=== PATIENT | male | born 1965 | race Caucasian/White ===

== ENCOUNTER 2021-12-27 17:11 | Emergency (ER) | payer OTHER, SELFPAY ==
--- NOTE | ~2021-12-27 | XR_ITS ---
EXAMINATION: XR chest 2V DATE: 12/27/2021 17:31 INDICATION: Upper respiratory tract infection. One month of cough and wheezing. TECHNIQUE: frontal and lateral views of the chest were obtained. COMPARISON: None FINDINGS: A couple calcified nodules in the left upper lung zone consistent with old granulomatous disease, the larger measuring 2 cm. No other airspace opacities, pulmonary edema, pleural effusion or pneumothora x. The cardiomediastinal silhouette is normal. Mild compression fracture with 20% anterior vertebral body height loss at T4-T6. IMPRESSION: 1. Calcific granulomata in the left upper lung zone. No acute cardiopulmonary disease. Reviewed, dictated and finalized at location A. IMPRESSION: 1. Calcific granulomata in the left upper lung zone. No acute cardiopulmonary d isease.
[2021-12-27 17:18] VITALS: BP 155/68; PULSE 100; RESP 22; TEMP 37.1; O2SAT 96
[2021-12-27 17:41] VITALS: BP 155/68; PULSE 100; RESP 22; TEMP 37.1; O2SAT 96
--- NOTE | 2021-12-27 17:45 | ED.URI ---
HPI - URI/Sore Throat General Chief Complaint: Upper Respiratory Infection Stated Complaint: Chest Pain Time Seen by Provider: 12/27/21 17:35 Source: patient Mode of arrival: ambulatory Limitations: no limitations History of Present Illness HPI Narrative: Mr. Torres is a 56-year-old male patient presenting to the clinic today with complaints of chest pain, shortness of breath, and mid back pain x1 to 2 months. He reports his shortness of breath has been gradually getting worse. He has a history of COPD. He is a current smoker. States he is smoked since the age of 10. Reports that he initially was coughing up green phlegm however that has somewhat dissipated. He done a breathing treatment prior to arrival and states that that did not help him much. He is reporting some midsternal chest pain that is radiating into his back. He denies any arm pain or jaw pain. He reports that he does get some chills and hot flashes. MD elicited complaint: other (Chest pain, shortness of breath, back pain) Related Data Home Medications Medication Instructions Recorded Confirmed albuterol sulfate 2.5 mg/3 mL mg 12/27/21 (0.083 %) solution for nebulization albuterol sulfate 90 mcg/actuation inhalation 12/27/21 aerosol inhaler (ProAir HFA) atorvastatin 40 mg tablet mg 12/27/21 cetirizine 10 mg tablet mg 12/27/21 ipratropium 0.5 mg-albuterol 3 mg ml inhalation 12/27/21 (2.5 mg base)/3 mL nebulization soln montelukast 10 mg tablet mg 12/27/21 omeprazole 20 mg capsule,delayed mg 12/27/21 release promethazine 6.25 mg-codeine 10 ml 12/27/21 mg/5 mL syrup Allergies Allergy/AdvReac Type Severity Reaction Status Date / Time No Known Allergies Allergy Verified 12/27/21 17:50 Review of Systems Review of Systems: Pertinent positives per HPI. Patient denies any fever, chills, rash, headache, visual changes, dizziness, palpitations, nausea, vomiting, diarrhea, constipation, abdominal pain, or any urinary issues. PMFSH Comments At the time of my signature, I reviewed and agree with the nursing past medical, surgical, social, and family history. There is no relevant family history pertinent to the patient complaint. Exam Narrative: General: Well-developed, well nourished, increasing respiratory rate Head: Normocephalic, atraumatic Eyes: Pupils equally round and reactive to light bilaterally, EOM intact, sclera and conjunctive clear, no discharge, lids normal Ears: TMs intact and clear, ear canals clear, no drainage, grossly hearing normal. Nose: Nares patent, no discharge, no inflammation, no sinus tenderness. Mouth: Oral pharynx without lesions or masses, good dentition, MMM. Neck: Supple, trachea midline, no enlargement of anterior or posterior cervical nodes, no thyroid masses or goiter palpable. Cardio: Regular rate and rhythm, s1 and s2 normal, no murmur appreciated. Resp: Rhonchi and wheezing throughout lung damian, no rales or rubs Course Course Emergency Course: Portions of this record may have been created with voice recognition software. Level of Care: Express Care Visit Vital Signs Vital signs: Vital Signs Temperature 37.1 C 12/27/21 17:18 Pulse Rate 100 12/27/21 17:18 Respiratory Rate 22 H 12/27/21 17:18 Blood Pressure 155/68 H 12/27/21 17:18 Pulse Oximetry 96 12/27/21 17:18 Oxygen Delivery Room Air 12/27/21 17:18 Temperature 37.1 C 12/27/21 17:41 Pulse Rate 100 12/27/21 17:41 Respiratory Rate 22 H 12/27/21 17:41 Blood Pressure 155/68 H 12/27/21 17:41 Pulse Oximetry 96 12/27/21 17:41 Oxygen Delivery Room Air 12/27/21 17:41 Vital signs reviewed MDM - URI/Sore Throat MDM Narrative Medical decision making narrative: At the time of visit patient is resting in the chair. He has expiratory wheezing and rhonchi. Chest x-ray was performed and shows that he has a calcific granulotoma in the left upper lung zone but no acute cardiopulmonary disease. He h
--- NOTE | 2021-12-27 17:54 | ECG_ITS ---
Measurements Intervals [place] Rate: 100 P: 82 [place]: 145 QRS: 81 QRSD: 77 T: 81 QT: 333 QTc: 430 Interpretive Statements SINUS TACHYCARDIA WITH OCCASIONAL SUPRAVENTRICULAR PREMATURE COMPLEXES CANNOT RULE OUT SEPTAL MYOCARDIAL INFARCTION, OF INDETERMINATE AGE BORDERLINE ECG NO PREVIOUS ECG AVAILABLE FOR COMPARISON Electronically Signed On 12-27-2021 18:32:29 CDT by Kendall Betancur M.D.
== END 2021-12-27 18:26 | disposition home or self-care (01) ==
PROVIDERS: Emergency Provider Nurse Practitioner Family
DX: J44.1 Chronic obstructive pulmonary disease with (acute) exacerbation (principal); M48.54XA Collapsed vertebra, not elsewhere classified, thoracic region, initial encounter for fracture; R07.89 Other chest pain
CPT/HCPCS: 71046; 93005; 99213; G0463